=== PATIENT | male | born 1995 | race Caucasian/White ===

== ENCOUNTER 2016-05-30 18:34 | Emergency (ER) | payer OTHER ==
[2016-05-30 18:39] VITALS: RESP 16
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
[2016-05-30] MEDS ORDERED: LIDOCAINE 2% JELLY 20 ML (UROJECT) ONE ×2 (19:03→19:05)
[2016-05-30 19:51] VITALS: BP 120/77; PULSE 70; TEMP 97.9; O2SAT 94
== END 2016-05-30 19:53 | disposition home or self-care (01) ==
DX: S80.01XA Contusion of right knee, initial encounter (principal); S80.212A Abrasion, left knee, initial encounter; S80.811A Abrasion, right lower leg, initial encounter; V18.0XXA Pedal cycle driver injured in noncollision transport accident in nontraffic accident, initial encounter